=== PATIENT | male | born 1985 | race African-American/Black ===

== ENCOUNTER 2019-09-24 11:26 | Emergency (ER) | payer OTHER, SELFPAY ==
--- NOTE | ~2019-09-24 | XR_ITS ---
EXAMINATION: XR chest 2V DATE: 09/24/2019 12:00 INDICATION: Mid to left chest pain TECHNIQUE: PA and lateral views of the chest are obtained. COMPARISON: 04/25/2019 FINDINGS: The lungs are free of acute opacities. There is no pleural effusion or pneumothorax. The ca rdiomediastinal silhouette is normal. The visualized bones and soft tissues are unremarkable. IMPRESSION: 1. No acute cardiopulmonary abnormality. Reviewed, dictated and finalized at location A.
[2019-09-24 11:31] VITALS: BP 139/96; PULSE 71; RESP 17; TEMP 36.8; O2SAT 100
--- NOTE | 2019-09-24 11:36 | ECG_ITS ---
Measurements Intervals [place] Rate: 66 P: 55 [place]: 143 QRS: 63 QRSD: 94 T: 39 QT: 353 QTc: 372 Interpretive Statements SINUS RHYTHM MINIMAL Q WAVES- ANTEROLAT/INF LEADS BASELINE WANDER- V5-V6 BORDERLINE ECG Electronically Signed On 09-24-2019 12:32:54 CDT by Rickey Gilmore D.O.
[2019-09-24] MEDS: ASPIRIN 81 MG CHEWABLE TABLET 324 MG PO (11:47)
[2019-09-24 12:01] VITALS: BP 124/86; PULSE 68; RESP 20; O2SAT 100
--- NOTE | 2019-09-24 12:21 | ED.CHESTPAIN ---
HPI - Chest Pain General Chief Complaint: Chest Pain <CRISTY Franco Last Filed: 09/24/19 14:13> Stated Complaint: CHEST PAIN XTD <CRISTY Franco Last Filed: 09/24/19 14:13> Time Seen by Provider: 09/24/19 11:46 <CRISTY Franco Last Filed: 09/24/19 14:13> Source: patient <CRISTY Franco Last Filed: 09/24/19 14:13> Mode of arrival: ambulatory <CRISTY Franco Last Filed: 09/24/19 14:13> Limitations: no limitations <CRISTY Franco Last Filed: 09/24/19 14:13> History of Present Illness HPI narrative: This is a 34 year old male that presents to the ER for chest pain since this morning. Reports he woke up with sharp midsternal chest pain. Reports the pain is now dull. Reports he has had this happen everyday for the last couple years. Reports he had a stress echo a couple months ago that he was told was normal. Denies fever, cold symptoms, or shortness of breath. <CRISTY Franco Last Filed: 09/24/19 14:13> Related Data Home Medications: Home Medications Medication Instructions Recorded Confirmed No Home Medications 09/24/19 09/24/19 <CRISTY Franco Last Filed: 09/24/19 14:13> Allergies/Adverse Reactions: Allergies Allergy/AdvReac Type Severity Reaction Status Date / Time No Known Allergies Allergy Verified 04/25/19 12:39 <CRISTY Franco Last Filed: 09/24/19 14:13> Review of Systems Review of Systems: Narrative: CONSTITUTIONAL: Denies fever ENT: Denies rhinorrhea, congestion, sore throat CARDIOVASCULAR: Reports chest pain. Denies edema. RESPIRATORY: Denies cough or dyspnea. <CRISTY Franco Last Filed: 09/24/19 14:13> All systems reviewed & are unremarkable except as noted in HPI and below <CRISTY Franco Last Filed: 09/24/19 14:13> [facility] Past Medical History Medical History: Medical History (Updated 09/24/19 @ 14:13 by Nicole Gonzalez PA-C) No significant past medical history <Nicole Gonzalez PA-C - Last Filed: 09/24/19 14:13> Surgical History Surgical History: Surgical History (Updated 04/25/19 @ 14:31 by Sami Chambers) No significant past surgical history <Nicole Gonzalez PA-C - Last Filed: 09/24/19 14:13> Social History Social History: Social History (Updated 09/24/19 @ 12:23 by Nicole Gonzalez PA-C) Smoking status: Current every day smoker Substance use: never <Nicole Gonzalez PA-C - Last Filed: 09/24/19 14:13> Exam Narrative: Exam Narrative: GENERAL: Well-appearing, well-nourished, and in no acute distress. HEAD: Normocephalic, atraumatic. EYES: EOMI. NECK: Supple. No adenopathy or masses. No carotid bruits or JVD CHEST: Clear to auscultation. No respiratory distress. No wheezes rales or rhonchi HEART: Regular rate and rhythm. No murmur heard. Normal peripheral pulses. EXTREMITIES: Normal range of motion. No edema. SKIN: Warm, dry, no rash. NEURO: No focal deficits. Alert and oriented x3. PSYCH: Normal mood and affect <Nicole Gonzalez PA-C - Last Filed: 09/24/19 14:13> Course Vital Signs Vital signs: Vital Signs Temperature 98.3 F 09/24/19 11:31 Pulse Rate 71 09/24/19 11:31 Respiratory Rate 17 09/24/19 11:31 Blood Pressure 139/96 H 09/24/19 11:31 Pulse Oximetry 100 09/24/19 11:31 Temperature 98.3 F 09/24/19 11:31 Pulse Rate 65 09/24/19 14:00 Respiratory Rate 16 09/24/19 14:00 Blood Pressure 136/92 H 09/24/19 14:00 Pulse Oximetry 100 09/24/19 14:00 <Nicole Gonzalez PA-C - Last Filed: 09/24/19 14:13> Vital Signs Temperature 98.3 F 09/24/19 11:31 Pulse Rate 71 09/24/19 11:31 Respiratory Rate 17 09/24/19 11:31 Blood Pressure 139/96 H 09/24/19 11:31 Pulse Oximetry 100 09/24/19 11:31 Temperature 98.3 F 09/24/19 11:31 Pulse Rate 65 09/24/19 14:00 Respiratory Rate 16 09/24/19 14:00 Blood Pressure 136/92 H 09/24/19 14:00
[2019-09-24 12:42] LABS: Basophils Percent Auto 0.6 % (0.2-1.2); Eosinophils Absolute Auto 0.1 K/mm3 (0-0.3); Eosinophils Percent Auto 1.3 % (0-4.4); Hematocrit 46.7 % (42.0-52.0); Hemoglobin 15.1 g/dL (14.0-18.0); Immature Granulocyte Absolute 0.01 K/mm3 (0.00-0.031); Immature Granulocyte Percent A 0.1 % (0-0.5); Lymphocytes Absolute Auto 2.17 K/mm3 (0.9-3.2); Lymphocytes Percent Auto 32.1 % (18.3-44.2); Mean Corpuscular HGB Conc 32.3 g/dl (32-36); Mean Corpuscular Hemoglobin 29.1 pg (26-34); Mean Platelet Volume 10.5 fl (7.4-10.4); Monocytes Absolute Auto 0.6 K/mm3 (0.1-0.6); Monocytes Percent Auto 8.1 % (2.6-8.5); Neutrophils Absolute Auto 3.9 K/mm3 (1.3-6.7); Neutrophils Percent Auto 57.8 % (45.5-73.1); Platelet Count Result 263 k/mm3 (150-375); Red Blood Count 5.19 M/mm3 (4.6-6.20); Red Cell Distribution Width 12.7 % (11.5-14.5); White Blood Count 6.8 K/mm3 (4.5-10.0)
[2019-09-24 12:53] LABS: INR 0.9; Prothrombin Time 12.3 Seconds (11.1-14.7)
[2019-09-24 12:54] LABS: Partial Thromboplastin Time 29.6 SECONDS (22.3-36.8)
[2019-09-24 12:55] LABS: Alanine Aminotransferase 43 U/L (4-50); Albumin Level 4.8 g/dL (3.5-5.1); Alkaline Phosphatase 92 U/L (38-126); Aspartate Amino Transferase 42 U/L (17-59); Bilirubin,Total 0.7 mg/dL (0.2-1.3); Blood Urea Nitrogen 16 mg/dL (9-20); Calcium 9.4 mg/dL (8.4-10.2); Carbon Dioxide 30 mmol/L (22-30); Chloride 103 mmol/L (98-107); Estimated CRCL calculation 85 ml/min; Estimated Glomerular Filt Rate > 60; Glucose 93 mg/dL (75-110); Potassium 4.5 mmol/L (3.4-5.0); Sodium 139 mmol/L (137-145)
[2019-09-24 13:00] VITALS: BP 122/84; PULSE 62; RESP 17; O2SAT 100
[2019-09-24 13:07] LABS: Add Urine Microscopic? NO; Appearance Urine Clear (Clear); Bilirubin Urine Negative (Negative); Blood Urine Negative (Negative); Color Urine Yellow (Yellow); Glucose Urine UA Negative (Negative); Ketones Urine Negative (Negative); Leukocyte Esterase Ur Negative LEU/UL (Negative); Nitrate Urine Negative (Negative); Protein Urine Negative (Negative); Specific Grav Ur 1.021 (1.001-1.035); Urobilinogen Urine Negative mg/dL (<2.0)
[2019-09-24 13:12] LABS: Troponin I < 0.012 ng/mL (0.000-0.034)
[2019-09-24 13:37] LABS: D Dimer 0.27 ug/mL (<0.48)
[2019-09-24 14:00] VITALS: BP 136/92; PULSE 65; RESP 16; O2SAT 100
== END 2019-09-24 14:22 | disposition home or self-care (01) ==
PROVIDERS: Emergency Provider Emergency Medicine; PCP Emergency Medicine
DX: R07.2 Precordial pain (principal); F17.200 Nicotine dependence, unspecified, uncomplicated; R94.31 Abnormal electrocardiogram [ECG] [EKG]
CPT/HCPCS: 36415; 71046; 80053; 81003; 84484; 85025; 85380; 85610; 85730; 93005; 99284; A9270

== ENCOUNTER 2020-01-14 04:09 | Emergency (ER) | payer OTHER, SELFPAY ==
--- NOTE | ~2020-01-14 | XR_ITS ---
EXAMINATION: XR chest 2V DATE: 01/14/2020 04:41 INDICATION: Left-sided chest pain TECHNIQUE: PA and lateral views of the chest are obtained. COMPARISON: 09/24/2019 FINDINGS: The lungs are free of acute opacities. There is no pleural effusion or pneumothorax. The ca rdiomediastinal silhouette is normal. The visualized bones and soft tissues are unremarkable. IMPRESSION: 1. No acute cardiopulmonary abnormality. Reviewed, dictated and finalized at location A.
[2020-01-14 04:09] VITALS: BP 140/93; PULSE 76; RESP 17; TEMP 36.7; O2SAT 99
[2020-01-14 04:13] VITALS: PULSE 70
--- NOTE | 2020-01-14 04:19 | ECG_ITS ---
Measurements Intervals [place] Rate: 72 P: 65 [place]: 147 QRS: 70 QRSD: 102 T: 40 QT: 357 QTc: 392 Interpretive Statements SINUS RHYTHM MINIMAL Q WAVES- INF/LAT LEADS BASELINE ARTIFACT- II, III BORDERLINE ECG Electronically Signed On 01-14-2020 6:49:52 CDT by Rickey Gilmore D.O.
--- NOTE | 2020-01-14 04:20 | PC.NURSE ---
ASA was administered ENGROSSER by EMS
[2020-01-14 04:27] LABS: Basophils Absolute Auto 0.1 K/mm3 (0.0-0.1); Basophils Percent Auto 0.6 % (0.2-1.2); Eosinophils Absolute Auto 0.2 K/mm3 (0-0.3); Eosinophils Percent Auto 2.3 % (0-4.4); Hematocrit 42.5 % (42.0-52.0); Immature Granulocyte Absolute 0.02 K/mm3 (0.00-0.031); Immature Granulocyte Percent A 0.2 % (0-0.5); Lymphocytes Absolute Auto 3.85 K/mm3 (0.9-3.2); Lymphocytes Percent Auto 46.1 % (18.3-44.2); Mean Corpuscular HGB Conc 32.9 g/dl (32-36); Mean Corpuscular Hemoglobin 29.2 pg (26-34); Mean Corpuscular Volume 88.7 fl (80-100); Mean Platelet Volume 10.5 fl (7.4-10.4); Monocytes Absolute Auto 0.6 K/mm3 (0.1-0.6); Monocytes Percent Auto 6.9 % (2.6-8.5); Neutrophils Absolute Auto 3.7 K/mm3 (1.3-6.7); Neutrophils Percent Auto 43.9 % (45.5-73.1); Platelet Count Result 256 k/mm3 (150-375); Red Blood Count 4.79 M/mm3 (4.6-6.20); Red Cell Distribution Width 13.1 % (11.5-14.5); White Blood Count 8.4 K/mm3 (4.5-10.0)
[2020-01-14] MEDS: KETOROLAC 30 MG/ML VIAL (*BKC) IV PUSH (04:32)
[2020-01-14 04:37] LABS: INR 0.9; Prothrombin Time 11.9 Seconds (11.1-14.7)
[2020-01-14 04:38] LABS: Partial Thromboplastin Time 28.6 SECONDS (22.3-36.8)
[2020-01-14 04:41] LABS: Anion Gap 5 mmol/L (8-16); Blood Urea Nitrogen 19 mg/dL (9-20); Carbon Dioxide 26 mmol/L (22-30); Chloride 106 mmol/L (98-107); Estimated CRCL calculation 97 ml/min; Estimated Glomerular Filt Rate > 60; Glucose 102 mg/dL (75-110); Potassium 3.8 mmol/L (3.4-5.0); Sodium 137 mmol/L (137-145)
[2020-01-14 04:50] LABS: Troponin I 0.027 ng/mL (0.000-0.034)
--- NOTE | 2020-01-14 05:12 | ED.CHESTPAIN ---
HPI - Chest Pain General Chief Complaint: Chest Pain Stated Complaint: chest pain Time Seen by Provider: 01/14/20 04:19 History of Present Illness HPI narrative: Patient is a 34-year-old male who presents ER with left-sided chest pain. Woke him from sleep when he is having a bad dream. [employer] his heart was racing. Has history of anxiety as well. Symptoms are moderately improved and still has some mild discomfort over the left chest wall with palpation. 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 Reports that this is happened to him intermittently. He had a stress test in the last couple of months that he reports was negative at [facility]. No history of coronary disease previously. Related Data Home Medications Medication Instructions Recorded Confirmed hydroxyzine HCl 01/14/20 hydroxyzine HCl 25 mg PO DAILY 01/14/20 sertraline 25 mg PO DAILY 01/14/20 Allergies Allergy/AdvReac Type Severity Reaction Status Date / Time No Known Allergies Allergy Verified 01/14/20 04:13 Review of Systems Review of Systems: All systems reviewed & are unremarkable except as noted in HPI and below Constitutional: Constitutional: Denies chills, Denies fever(s) and Denies weakness ENT: Denies nasal congestion and Denies sore throat Cardiovascular: Cardiovascular: Denies chest pain, Reports rapid heart rate and Denies radiating jaw, neck or arm pain Respiratory: Respiratory: Denies cough, Denies dyspnea and Denies wheezing Musculoskeletal: Musculoskeletal: Denies back pain and Denies muscle cramps Psychiatric: Psychiatric: Reports anxiety and Denies depression PMFSH Past Medical History Medical History (Updated 01/14/20 @ 06:10 by Shiv Pfeiffer MD) No significant past medical history Surgical History Surgical History (Updated 04/25/19 @ 14:31 by Sami Chambers) No significant past surgical history Social History Social History (Updated 09/24/19 @ 12:23 by Nicole Gonzalez PA-C) Smoking status: Current every day smoker Substance use: never Gender identity (if verbalized by the patient): Male Exam Narrative: Exam Narrative: GENERAL: Well-appearing, well-nourished, and in no acute distress. HEAD: Normocephalic, atraumatic. ENT: Mucous membranes moist. CHEST: Clear to auscultation. No respiratory distress. Tenderness over left pectoralis. HEART: Regular rate and rhythm. Normal peripheral pulses. ABDOMEN: Soft, nontender, nondistended. EXTREMITIES: Normal range of motion. No edema. SKIN: Warm, dry, no rash. NEURO: Alert and oriented x3. Course Course Emergency Course: Patient educated on lab results. Discussed desire to do a 3-hour troponin level given modest increase in original troponin which was still within normal limits. Patient does not want to wait the additional 50 minutes to have a second troponin drawn and then resulted. He would like to leave AGAINST MEDICAL ADVICE. Discussed that elevated troponin could indicate heart disease or stress from an arrhythmia. It is certainly encouraging that he has had a negative stress test recently but unfortunately do not have access to that. Vital Signs Vital signs: Vital Signs Temperature 98.1 F 01/14/20 04:09 Pulse Rate 76 01/14/20 04:09 Respiratory Rate 17 01/14/20 04:09 Blood Pressure 140/93 H 01/14/20 04:09 Pulse Oximetry 99 01/14/20 04:09 Temperature 98.1 F 01/14/20 04:09 Pulse Rate 70 01/14/20 04:13 Respiratory Rate 17 01/14/20 04:09 Blood Pressure 140/93 H 01/14/20 04:09 Pulse Oximetry 99 01/14/20 04:09 MDM - Chest Pain Lab Data Result diagrams: 01/14/20 04:22 01/14/20 04:22 Labs: Lab Results 01/14/20 01/14/20 01/14/20 Range/Units 04:22 04:22 04:22 WBC 8.4 (4.5-10.0) K/mm3 RBC 4.79 (4.6-6.20) M/mm3 Hgb 14.0 (14.0-18.0) g/dL Hct 42.5 (42.0-52.0) % MCV 88.7 (80-100) fl M[facility]
--- NOTE | 2020-01-14 06:11 | PC.NURSE ---
pt stating that he would like to leave at this time and he does not want to wait around for 2nd troponin test. all risks and benefits explained to patient and troponin test explained to pt in detail. MD aware, to bedside to discuss risks with patients. pt stating he still wants to leave. AMA paperwork filled out at this time.
[2020-01-14 06:12] VITALS: BP 127/87; PULSE 73; RESP 17; O2SAT 100
== END 2020-01-14 06:14 | disposition left against medical advice (07) ==
PROVIDERS: Emergency Provider Emergency Medicine; PCP Emergency Medicine
DX: R07.89 Other chest pain (principal); F17.200 Nicotine dependence, unspecified, uncomplicated; F41.9 Anxiety disorder, unspecified
CPT/HCPCS: 36415; 71046; 80048; 84484; 85025; 85610; 85730; 93005; 96374; 99284; J1885

== ENCOUNTER 2021-03-22 01:59 | Emergency (ER) | payer OTHER, SELFPAY ==
[2021-03-22 02:06] VITALS: BP 126/88; PULSE 86; RESP 16; TEMP 36.5; O2SAT 100
--- NOTE | 2021-03-22 02:15 | PC.NURSE ---
Pt approached triage desk and asked about wait time. This Rn explained to pt that rooms are placed based on acuity and I cannot give a wait time. Pt states dont worry about it then, Im going to go home and relax . Pt A&Ox4 and ambulated out of ED with steady gait, in no obvious distress.
== END 2021-03-22 04:20 | disposition left against medical advice (07) ==
LOC: ANHED 02:26
PROVIDERS: PCP Emergency Medicine
DX: R07.9 Chest pain, unspecified (principal)
CPT/HCPCS: 99199

== ENCOUNTER 2021-06-15 07:34 | Emergency (ER) | payer OTHER, SELFPAY ==
[2021-06-15] VITALS (10 sets, daily range): BP systolic 131–141; BP diastolic 85–99; PULSE 70–83; RESP 12–24; TEMP 36.9; O2SAT 98–100
--- NOTE | ~2021-06-15 | XR_ITS ---
XR chest 2V DATE: 06/15/2021 07:55 INDICATION: Left-sided chest pain TECHNIQUE: PA and lateral views COMPARISON: 01/14/2020 2 view chest FINDINGS: Normal heart size. No hilar or mediastinal enlargement. No pulmonary infiltrate or consolid ation, pleural effusion or pulmonary vascular congestion or pneumothorax. Included skeletal structure s appear normal. IMPRESSION: Negative Reviewed, dictated and finalized at location B. CE WATER PROTECTION SPECIALIST IMPRESSION: Negative
--- NOTE | 2021-06-15 07:40 | ECG_ITS ---
Measurements Intervals [place] Rate: 72 P: 51 [place]: 158 QRS: 59 QRSD: 98 T: 37 QT: 339 QTc: 373 Interpretive Statements SINUS RHYTHM BASELINE ARTIFACT- II, III, AVR, AVF, V2-V6 NORMAL ECG Electronically Signed On 06-15-2021 8:05:42 TIN POT OPERATOR by Rickey Gilmore D.O.
[2021-06-15] MEDS: ASPIRIN 81 MG CHEWABLE TABLET 324 MG PO (07:51)
[2021-06-15 07:58] LABS: Basophils Percent Auto 0.4 % (0.2-1.2); Eosinophils Absolute Auto 0.1 K/mm3 (0-0.3); Eosinophils Percent Auto 1.7 % (0-4.4); Hematocrit 43.3 % (42.0-52.0); Hemoglobin 14.3 g/dL (14.0-18.0); Immature Granulocyte Absolute 0.02 K/mm3 (0.00-0.031); Immature Granulocyte Percent A 0.2 % (0-0.5); Lymphocytes Absolute Auto 2.38 K/mm3 (0.9-3.2); Lymphocytes Percent Auto 29.6 % (18.3-44.2); Mean Corpuscular Hemoglobin 29.9 pg (26-34); Mean Corpuscular Volume 90.4 fl (80-100); Mean Platelet Volume 10.2 fl (7.4-10.4); Monocytes Absolute Auto 0.7 K/mm3 (0.1-0.6); Monocytes Percent Auto 8.5 % (2.6-8.5); Neutrophils Absolute Auto 4.8 K/mm3 (1.3-6.7); Neutrophils Percent Auto 59.6 % (45.5-73.1); Platelet Count Result 255 k/mm3 (150-375); Red Blood Count 4.79 M/mm3 (4.6-6.20); Red Cell Distribution Width 12.8 % (11.5-14.5)
--- NOTE | 2021-06-15 08:03 | ED.GENADULT ---
HPI - General Adult General Chief complaint: Chest Pain Stated complaint: chest tightness Time Seen by Provider: 06/15/21 07:48 Source: patient and RN notes reviewed History of Present Illness HPI narrative: Patient is a 36 y/o male complaining of left upper chest pain starting 2 days ago. He describes his chest pain as a tightness and rates it as 6/10. He states that his pain radiates to right side sometime. He takes Tylenol which helps with his pain. He has no SOB, cough or fever. 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 Related Data Home Medications Medication Instructions Recorded Confirmed hydroxyzine HCl 01/14/20 hydroxyzine HCl 25 mg PO DAILY 01/14/20 sertraline 25 mg PO DAILY 01/14/20 amlodipine 2.5 mg tablet 2.5 mg PO tablet 08/27/20 lisinopril 10 mg tablet 10 mg PO DAILY 08/27/20 nicotine 7 mg/24 hr daily 1 patch TRANSDERMAL ea 08/27/20 transdermal patch omeprazole 20 mg capsule,delayed 20 mg PO DAILY 08/27/20 release Allergies Allergy/AdvReac Type Severity Reaction Status Date / Time No Known Allergies Allergy Verified 06/15/21 07:45 Review of Systems Constitutional: Constitutional: Denies chills, Denies fever(s), Denies headache(s) and Denies weakness Eyes: Eyes: Denies blurry vision ENT: Denies headache(s) and Denies neck pain Cardiovascular: Cardiovascular: Reports chest pain and Denies dyspnea Respiratory: Respiratory: Denies cough and Denies dyspnea Gastrointestinal: Gastrointestinal: Denies abdominal pain, Denies diarrhea, Denies nausea and Denies vomiting Genitourinary: Genitourinary: Denies hematuria and Denies dysuria Musculoskeletal: Musculoskeletal: Denies back pain and Denies neck pain Neurologic: Denies headache(s) and Denies weakness PMFSH Past Medical History Medical History Anxiety Chest pain HTN (hypertension) Surgical History Surgical History No significant past surgical history Social History Social History Smoking status: Current every day smoker Alcohol intake: current Drinks per week: 1 Alcohol use details: Beer Substance use: never Gender identity (if verbalized by the patient): Male Exam Const: General: no acute distress and well developed Orientation/consciousness: oriented to person, oriented to place, oriented to time and patient oriented x3 HENMT: Head: normocephalic Ears: external ears normal General nose exam: Normal external nose present Eyes: General: appearance normal, both eyes and all related structures Conjunctivae: conjunctivae normal Neck: Neck: normal visual inspection and full ROM Chest: Chest palpation & inspection: normal inspection of the chest and no tenderness Resp: Effort & Inspection: normal respiratory effort Auscultation: clear to auscultation bilaterally Cardio: Rate: regular rate Rhythm: regular rhythm GI: GI Palp: No abdominal tenderness and Yes Soft to palpation Skin: General skin exam: normal color and turgor normal Neuro: General: oriented to person, oriented to place, oriented to time and patient oriented x3 Cognition (Neuro): normal cognition Extrem: General: normal to inspection, full ROM and no pedal edema Psych: Appearance: grossly normal Mental Status: mental status grossly normal Affect: normal affect Course Reevaluation(s) Reevaluation #1: Patient does not want to wait for repeat Troponin. He wants to leave AMA. He is awake, alert and competent to make medical decision for himself. Date: 06/15/21 Time: 10:11 Vital Signs Vital signs: Vital Signs Temperature 36.9 C 06/15/21 07:37 Pulse Rate 83 06/15/21 07:37 Respiratory Rate 18 06/15/21 07:37 Blood Pressure 140/85 06/15/21 07:37 Pulse Oximetry 100 06/15/21 07:37 Temperature 36.9 C 06/15/21 07:37 Pulse Rate 7
[2021-06-15 08:16] LABS: Alanine Aminotransferase 43 U/L (4-50); Albumin Level 4.9 g/dL (3.5-5.1); Alkaline Phosphatase 144 U/L (38-126); Anion Gap 4 mmol/L (8-16); Aspartate Amino Transferase 37 U/L (17-59); Bilirubin,Total 0.7 mg/dL (0.2-1.3); Blood Urea Nitrogen 15 mg/dL (9-20); Calcium 9.9 mg/dL (8.4-10.2); Carbon Dioxide 27 mmol/L (22-30); Chloride 107 mmol/L (98-107); Estimated CRCL calculation 92 ml/min; Estimated Glomerular Filt Rate > 60; Glucose 107 mg/dL (65-110); Lipase 311 U/L (23-300); Potassium 4.5 mmol/L (3.4-5.0); Sodium 138 mmol/L (137-145)
[2021-06-15 08:24] LABS: Troponin I 0.016 ng/mL (0.000-0.034)
[2021-06-15 08:45] LABS: INR 0.9; Prothrombin Time 11.7 Seconds (11.1-14.7)
[2021-06-15 08:46] LABS: Partial Thromboplastin Time 29.8 SECONDS (22.3-36.8)
--- NOTE | 2021-06-15 10:10 | PC.NURSE ---
patient states he does not wish to stay for serial troponin, patient educated on benefits of receiving additional labwork. patient states he wishes to sign out and go to work. Patient signs out AMA. patient ambulated out without the need for assistance. Patient instructed to return to the ED in case of return of symptoms or onset of new worrisome symptom.
== END 2021-06-15 10:10 | disposition left against medical advice (07) ==
PROVIDERS: Emergency Provider Emergency Medicine; PCP Emergency Medicine
DX: R07.89 Other chest pain (principal); I10 Essential (primary) hypertension; F41.9 Anxiety disorder, unspecified; F17.200 Nicotine dependence, unspecified, uncomplicated
CPT/HCPCS: 36415; 71046; 80053; 83690; 84484; 85025; 85610; 85730; 93005; 99284; A9270

== ENCOUNTER 2021-07-15 09:59 | Emergency (ER) | payer OTHER, SELFPAY ==
--- NOTE | ~2021-07-15 | CT_ITS ---
EXAMINATION: CT abdomen pelvis w con DATE: 07/15/2021 11:30 INDICATION: Abdominal pain TECHNIQUE: Computed tomography (CT) of the abdomen and pelvis was performed with 100 CC Omnipaque 350 intravenous contrast. Automated exposure control and iterative reconstruction technique were employe d. Exam dose: 963.85 mGy-cm total exam DLP. COMPARISON: None. FINDINGS: There is minimal dependent bilateral lower lobe atelectasis. Normal heart size. No pericardial or pleural effusion. The liver, gallbladder, bile ducts, spleen, pancreas, pancreatic duct, and adrenal glands and kidneys appear normal. Normal caliber of the abdominal aorta. No intraperitoneal or retroperitoneal or pelvic mass lesion o r lymphadenopathy or ascites. Normal appendix. No bowel obstruction or intraperitoneal free air. Included skeletal structures are unremarkable. IMPRESSION: No significant abnormality Reviewed, dictated and finalized at Location [facility]. Reviewed, dictated and finalized at location A. R APPLIANCE ASSEMBLY SUPERVISOR IMPRESSION: No significant abnormality
[2021-07-15 10:06] VITALS: BP 136/93; PULSE 81; RESP 18; TEMP 36.8; O2SAT 100
--- NOTE | 2021-07-15 10:19 | ED.ABDPAIN ---
HPI - Abdominal Pain General Chief Complaint: Abdominal Pain Stated Complaint: here for ct Time Seen by Provider: 07/15/21 10:03 Source: patient Mode of arrival: ambulatory Limitations: no limitations History of Present Illness HPI narrative: 36-year-old male presents today with complaints abdominal pain for the last couple weeks. Abdominal pain is upper and epigastric in nature. Patient states he was at his primary doctors and told that his lipase was elevated. Patient denies any nausea, vomiting, body aches, chills, fevers, runny nose, cough, sick contacts, or diarrhea. Patient states he used to drink daily but has not had a drink for 3 weeks. Related Data Home Medications Medication Instructions Recorded Confirmed amlodipine 2.5 mg tablet 2.5 mg PO tablet 08/27/20 lisinopril 10 mg tablet 10 mg PO DAILY 08/27/20 simvastatin 20 mg DAILY 07/15/21 07/15/21 Allergies Allergy/AdvReac Type Severity Reaction Status Date / Time No Known Allergies Allergy Verified 07/15/21 10:11 Review of Systems Review of Systems: CONSTITUTIONAL: Denies fever, chills, or sweats. EYES: Denies visual changes, redness, or discharge. ENT: Denies rhinorrhea, congestion, sore throat, or otalgia. CARDIOVASCULAR: Denies chest pain, palpitations, or edema. RESPIRATORY: Denies cough or dyspnea. GASTROINTESTINAL: Positive for abdominal pain. Denies nausea, vomiting, or diarrhea. GENITOURINARY: Denies dysuria or hematuria. SKIN: Denies rash or itching. MUSCULOSKELETAL: Denies back pain, joint pain, or myalgia. NEUROLOGIC: Denies headache, numbness, dizziness, or weakness. PSYCHIATRIC: Denies anxiety or depression. [facility] Past Medical History Medical History Anxiety Chest pain HTN (hypertension) Surgical History Surgical History No significant past surgical history Social History Social History Smoking status: Current every day smoker Alcohol intake: current Drinks per week: 1 Alcohol use details: Beer Substance use: never Gender identity (if verbalized by the patient): Male Exam Narrative: GENERAL: Well-appearing, well-nourished, and in no acute distress. HEAD: Normocephalic, atraumatic. EYES: PERRLA and EOMI. ENT: Nares clear, no rhinorrhea or epistaxis. Mucous membranes moist. Oropharynx without tonsillar hypertrophy exudate or other lesions. Bilateral TMs pearly lee nonbulging NECK: Supple. No adenopathy or masses. No carotid bruits or JVD CHEST: Clear to auscultation. No respiratory distress. No wheezes rales or rhonchi HEART: Regular rate and rhythm. No murmur heard. Normal peripheral pulses. ABDOMEN: Soft, nontender, nondistended, normal active bowel sounds. EXTREMITIES: Normal range of motion. No edema. SKIN: Warm, dry, no rash. NEURO: No focal deficits. Alert and oriented x3. PSYCH: Normal mood and affect. Course Course Emergency Course: Patient feeling well. All results reviewed with patient. Patient to be discharged home. Instructions to eat a healthy diet and stop drinking. Patient wanting to go home and is in agreement with plan of care. Follow-up with primary care doctor in 1 week. Vital Signs Vital signs: Vital Signs Temperature 36.8 C 07/15/21 10:06 Pulse Rate 81 07/15/21 10:06 Respiratory Rate 18 07/15/21 10:06 Blood Pressure 136/93 H 07/15/21 10:06 Pulse Oximetry 100 07/15/21 10:06 Temperature 36.8 C 07/15/21 10:06 Pulse Rate 81 07/15/21 10:06 Respiratory Rate 18 07/15/21 10:06 Blood Pressure 136/93 H 07/15/21 10:06 Pulse Oximetry 100 07/15/21 10:06 MDM - Abdominal Pain Differential Diagnosis Differential diagnosis: Likely abdominal pain, constipation, pancreatitis and other (Fatty liver) Medical Records Attestation: I reviewed the patient's medical records. Lab Data Attestation:
[2021-07-15 10:39] LABS: Basophils Percent Auto 0.5 % (0.2-1.2); Eosinophils Absolute Auto 0.1 K/mm3 (0-0.3); Eosinophils Percent Auto 1.5 % (0-4.4); Hemoglobin 14.1 g/dL (14.0-18.0); Immature Granulocyte Absolute 0.03 K/mm3 (0.00-0.031); Immature Granulocyte Percent A 0.4 % (0-0.5); Lymphocytes Absolute Auto 2.79 K/mm3 (0.9-3.2); Lymphocytes Percent Auto 34.9 % (18.3-44.2); Mean Corpuscular HGB Conc 32.8 g/dl (32-36); Mean Corpuscular Hemoglobin 30.1 pg (26-34); Mean Corpuscular Volume 91.7 fl (80-100); Mean Platelet Volume 10.8 fl (7.4-10.4); Monocytes Absolute Auto 0.7 K/mm3 (0.1-0.6); Monocytes Percent Auto 8.1 % (2.6-8.5); Neutrophils Absolute Auto 4.4 K/mm3 (1.3-6.7); Neutrophils Percent Auto 54.6 % (45.5-73.1); Platelet Count Result 285 k/mm3 (150-375); Red Blood Count 4.69 M/mm3 (4.6-6.20); Red Cell Distribution Width 12.6 % (11.5-14.5)
[2021-07-15 10:45] LABS: Add Urine Microscopic? YES; Appearance Urine Clear (Clear); Bilirubin Urine Negative (Negative); Blood Urine Negative (Negative); Color Urine Straw (Yellow); Glucose Urine UA Negative (Negative); Ketones Urine Negative (Negative); Leukocyte Esterase Ur Trace LEU/UL (Negative); Nitrate Urine Negative (Negative); Protein Urine Negative (Negative); RBC Urine 0-2 /hpf (0-2); Squamous Epithelial Cell Urine Rare /hpf (Few); Urobilinogen Urine Negative mg/dL (<2.0)
[2021-07-15] MEDS: SODIUM CHLORIDE 0.9% IV 1,000 ML 999 ML IV CONT (10:59)
[2021-07-15 11:13] LABS: Alanine Aminotransferase 51 U/L (4-50); Albumin Level 4.5 g/dL (3.5-5.1); Alkaline Phosphatase 127 U/L (38-126); Anion Gap 5 mmol/L (8-16); Aspartate Amino Transferase 39 U/L (17-59); Bilirubin,Total 0.6 mg/dL (0.2-1.3); Blood Urea Nitrogen 14 mg/dL (9-20); Calcium 8.8 mg/dL (8.4-10.2); Carbon Dioxide 27 mmol/L (22-30); Chloride 108 mmol/L (98-107); Estimated CRCL calculation 92 ml/min; Estimated Glomerular Filt Rate > 60; Glucose 100 mg/dL (65-110); Lipase 291 U/L (23-300); Potassium 4.6 mmol/L (3.4-5.0); Sodium 140 mmol/L (137-145)
[2021-07-15 12:39] VITALS: BP 134/97; PULSE 76; RESP 16; O2SAT 97
== END 2021-07-15 12:41 | disposition home or self-care (01) ==
PROVIDERS: Emergency Provider Nurse Practitioner Family; PCP Emergency Medicine
DX: R10.84 Generalized abdominal pain (principal); I10 Essential (primary) hypertension; F17.200 Nicotine dependence, unspecified, uncomplicated
CPT/HCPCS: 36415; 74177; 80053; 81001; 82248; 83690; 85025; 87086; 96360; 99284; J7030; Q9967

== ENCOUNTER 2023-02-23 03:26 | Emergency (ER) | payer OTHER, SELFPAY ==
[2023-02-23 03:29] VITALS: BP 139/94; PULSE 68; RESP 18; TEMP 36.8; O2SAT 99
--- NOTE | 2023-02-23 04:18 | ED.GENADULT ---
HPI - General Adult General Chief complaint: Dental/Oral Stated complaint: toothache Time Seen by Provider: 02/23/23 04:14 History of Present Illness HPI narrative: Patient 37-year-old gentleman who presents the emergency department with chief complaint of dental pain. Patient reports that he has an impacted wisdom tooth in the right lower mandible. Patient reports that the areas become exquisitely tender and reports that he has a dentist appointment on Monday patient denies fever denies trismus denies purulent drainage Related Data Home Medications Medication Instructions Recorded Confirmed amlodipine 2.5 mg tablet 2.5 mg PO 08/27/20 lisinopril 10 mg tablet 10 mg PO DAILY 08/27/20 simvastatin 20 mg tablet 20 mg DAILY 07/15/21 07/15/21 Allergies Allergy/AdvReac Type Severity Reaction Status Date / Time No Known Allergies Allergy Verified 07/15/21 10:11 Review of Systems Review of Systems: A 10 system review of systems was completed on the patient and is negative except for what is stated in the HPI. Nursing and ancillary documentation was reviewed. [facility] Past Medical History Medical History Anxiety Chest pain HTN (hypertension) Surgical History Surgical History No significant past surgical history Social History Social History Smoking status: Current every day smoker Alcohol intake: current Drinks per week: 1 Alcohol use details: Beer Substance use: never Gender identity (if verbalized by the patient): Male Exam Narrative: GENERAL: Well-appearing, well-nourished, and in no acute distress. HEAD: Normocephalic, atraumatic. EYES: PERRLA and EOMI. ENT: Nares clear, no rhinorrhea or epistaxis. Mucous membranes moist. Gross decay of the right lower wisdom tooth, tender to palpation no fluctuance NECK: Supple. CHEST: Clear to auscultation. No respiratory distress. HEART: Regular rate and rhythm. No murmur heard. Normal peripheral pulses. ABDOMEN: Soft, nontender, nondistended, normal active bowel sounds. EXTREMITIES: Normal range of motion. No edema. SKIN: Warm, dry, no rash. NEURO: No focal deficits. Alert and oriented x3. PSYCH: Normal mood and affect. Course Vital Signs Vital signs: Vital Signs Temperature 36.8 C 02/23/23 03:29 Pulse Rate 68 02/23/23 03:29 Respiratory Rate 18 02/23/23 03:29 Blood Pressure 139/94 H 02/23/23 03:29 Pulse Oximetry 99 02/23/23 03:29 Oxygen Delivery Room Air 02/23/23 03:29 Temperature 36.8 C 02/23/23 03:29 Pulse Rate 68 02/23/23 03:29 Respiratory Rate 18 02/23/23 03:29 Blood Pressure 139/94 H 02/23/23 03:29 Pulse Oximetry 99 02/23/23 03:29 Oxygen Delivery Room Air 02/23/23 03:29 Medical Decision Making MDM Narrative Medical decision making narrative: Differential diagnosis of dental abscess, impacted tooth, dental decay Patient is showing no signs of sepsis no signs of large abscess or sepsis Patient will be started on amoxicillin and will be given a dose of oxycodone tonight in the emergency department and sent home with a prescription for amoxicillin and ibuprofen Vital Signs Vital Signs: Vital Signs Temperature 36.8 C 02/23/23 03:29 Pulse Rate 68 02/23/23 03:29 Respiratory Rate 18 02/23/23 03:29 Blood Pressure 139/94 H 02/23/23 03:29 Pulse Oximetry 99 02/23/23 03:29 Oxygen Delivery Room Air 02/23/23 03:29 Temperature 36.8 C 02/23/23 03:29 Pulse Rate 68 02/23/23 03:29 Respiratory Rate 18 02/23/23 03:29 Blood Pressure 139/94 H 02/23/23 03:29 Pulse Oximetry 99 02/23/23 03:29 Oxygen Delivery Room Air 02/23/23 03:29 Discharge Plan Discharge Clinical Impression: Dental abscess Patient Disposition: Home, Self-Care Condition: Stable Ins
[2023-02-23] MEDS: AMOXICILLIN 500 MG CAPSULE PO (04:28)
[2023-02-23] MEDS: oxyCODONE HCL (*CRX) 5 MG TAB IR PO (04:28)
== END 2023-02-23 04:36 | disposition home or self-care (01) ==
PROVIDERS: Emergency Provider Emergency Medicine; PCP Emergency Medicine
DX: K04.7 Periapical abscess without sinus (principal); I10 Essential (primary) hypertension; F17.200 Nicotine dependence, unspecified, uncomplicated
CPT/HCPCS: 99283; A9270